=== PATIENT | male | born 1955 | race Caucasian/White ===

== ENCOUNTER 2024-05-10 09:51 | Emergency (ER) | payer MEDICARE, SELFPAY ==
[2024-05-10] VITALS (35 sets, daily range): BP systolic 119–167; BP diastolic 60–117; PULSE 64–82; RESP 14–25; TEMP 36.4–36.8; O2SAT 82–100
--- NOTE | ~2024-05-10 | XR_ITS ---
XR chest 2V 05/10/2024 11:02 Indication: Hypoxia. Procedure: 2 view chest Comparison: 10/06/2018 Findings: Cardiomegaly with mild interstitial edema. No pleural effusion or pneumothorax. No acute os seous abnormality. Impression: 1: Cardiomegaly with mild interstitial edema. Reviewed, dictated and finalized at location B. Impression: 1: Cardiomegaly with mild interstitial edema.
--- NOTE | ~2024-05-10 | CT_ITS ---
EXAMINATION: CTA chest PE protocol DATE: 05/10/2024 12:32 INDICATION: Hypoxia. Elevated d-dimer. TECHNIQUE: Computed tomography (CT) pulmonary angiogram of the chest was performed with 100 mL Omnipa que-350 intravenous contrast. Additional 3D reconstructions utilizing coronal maximum intensity proje ction (MIP) were performed. The dose-length product was 683.07 mGy-cm. COMPARISON: None FINDINGS: Moderate respiratory motion at the apices and lung bases which decreases sensitivity in some of the s maller subsegmental pulmonary arteries in these areas. No pulmonary embolus. Small bilateral posterio r layering pleural effusions with dependent compressive atelectasis in the bilateral lower lobes. Mil d scattered smooth septal line thickening primarily at the apices and lung bases consistent with mild pulmonary edema. There is diffuse bronchial wall thickening with mild scattered mucous plugging. No pneumonia. There is prominent AP narrowing of the trachea and bilateral mainstem bronchi consistent w ith tracheobronchomalacia. Mild cardiomegaly. Scattered atherosclerotic coronary artery calcification s. Thoracic aorta is normal in caliber with no dissection. There is mild mediastinal lymphadenopathy, the largest lymph notes measuring 2.7 x 1.6 cm a subcarinal region and 2.0 x 1.1 cm the AP window. T he left kidney is not visualized which could be either ectopic or developmentally versus surgically a bsent. Mild thoracic spondylosis. IMPRESSION: 1. No pulmonary embolism. Sensitivity decreased in some of the smaller basilar and apical subsegmenta l pulmonary arteries due to respiratory motion. 2. Likely congestive heart failure with cardiomegaly, minimal pulmonary edema and small bilateral ple ural effusions. 3. Diffuse bronchial wall thickening with mild scattered is plugging consistent with bronchitis. 4. Tracheobronchial malacia with increased AP diameter the trachea and mainstem bronchi. 5. Mild mediastinal lymphadenopathy, most likely reactive. 6. Absent versus ectopically located left kidney. Reviewed, dictated and finalized at location A. IMPRESSION: 1. No pulmonary embolism. Sensitivity decreased in some of the smaller basilar and apical subsegmental pulmonary arteries due to respiratory motion. 2. Likely congestive heart failure with cardiomegaly, minimal pulmonary edema a nd small bilateral pleural effusions. 3. Diffuse bronchial wall thickening with mild scattered is plugging consistent with bronchitis. 4. Tracheobronchial malacia with increased AP diameter the trachea and mainstem bronchi. 5. Mild mediastinal lymphadenopathy, most likely reactive. 6. Absent versus ectopically located left kidney.
--- NOTE | 2024-05-10 09:56 | ED.RECABL ---
HPI - Recheck/Abnormal Lab/Rx General Chief Complaint: Recheck/Abnormal Lab/Rx Stated Complaint: high blood sugar Time Seen by Provider: 05/10/24 09:53 Source: patient and EMS Mode of arrival: EMS Limitations: other ( Nonverbal/expressive aphasia) History of Present Illness HPI narrative: 68-year-old male presents with concern for high blood sugar. He lives at a facility. They noted that his blood sugar was high for which he received 10 units of Lantus at approximately 6:00 a.m.. It continue to be elevated and read 466 mg/dL per EMS report for which the facility had given an additional 20 units of Lantus for a total of 30 units total. patient has a history of a stroke which left him nonverbal/with expressive aphasia as well as right-sided contractures. It is reported that patient has been complaining of dysuria. He was also reported to be hypoxic at 89% on room air for EMS. Nasal cannula was placed given this. patient's medication list is reviewed and shows he is on Lantus 10 units subQ (presumably in the am since given at 8am) and Lantus 18 units subQ at HS. also on gabapentin, buspirone, aspirin, Coreg, atorvastatin, amlodipine, Tylenol, naproxen, omeprazole, and erythromycin but no other diabetes agents. Patient was recently admitted at [facility] on [address] per daughter. Related Data Allergies Allergy/AdvReac Type Severity Reaction Status Date / Time No Known Allergies Allergy Verified 05/10/24 10:58 [facility] Past Medical History Medical History Anxiety disorder, unspecified Aphasia following cerebral infarction Aphasia following nontraumatic subarachnoid hemorrhage Cellulitis of right lower limb Cognitive communication deficit Essential (primary) hypertension Gastro-esophageal reflux disease without esophagitis Hemiplegia and hemiparesis following cerebral infarction affecting right dominant side Hyperlipidemia, unspecified Hypoglycemia, unspecified Major depressive disorder, recurrent, mild Other idiopathic peripheral autonomic neuropathy Other specified chronic obstructive pulmonary disease Pain, unspecified Type 2 diabetes mellitus without complications Unspecified symptoms and signs involving cognitive functions following other cerebrovascular disease Vitamin deficiency, unspecified Social History Social History (Updated 05/10/24 @ 11:03 by Ligia Martini MD) Social History: Attempt resuscitation/ CPR per POLST from skilled nursing with full treatment; signed 3/21/19 Living arrangements: skilled nursing Additional living arrangements comments: [facility] since 10/12/2018 Occupation/Education: retired 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 HEAD: Normocephalic, atraumatic. EYES: Non injected, non icteric ENT: Nares clear, no rhinorrhea or epistaxis. NECK: Supple. CHEST: No respiratory distress. You nonlabored. HEART: Regular rate and rhythm. . ABDOMEN: Soft, nondistended. EXTREMITIES: contractures on the right. Concern for cellulitis on the right lower extremity. Bandage at right inguinal crease with underlying mild erythema but otherwise not indurated and no purulence discharge. SKIN: Warm, dry. Bandage over right groin. Stage one sacral decubitus ulcer and along buttocks. NEURO: Alert. contractures on the right. expressive aphasia, patient able to nod and point but unable to provide history beyond that. PSYCH: Normal mood and affect. Course Vital Signs Vital signs: Vital Signs Temperature 97.9 F 05/10/24 09:44 Pulse Rate 66 05/10/24 09:44 Respiratory Rate 14 05/10/24 09:44 Blood Pressure 151/75 H 05/10/24 09:44 Pulse Oximetry 89 L 05/10/24 09:44 Oxygen Delivery Room Air 05/10/24 09:44 Temperature 97.5 F L 05/10/24 11:2
[2024-05-10 10:16] LABS: Alveolar/Arterial O2 Gradient 123.3 mmHg; Base Excess ABG -8.1 mEq/l (+/-2.0); Fractional Inspired Oxygen 32 %; Oxygen Content ABG 15.9 %vol (16.0-22.0); Oxygen Saturation ABG 91.4 % (95.0-100.0); PO2 ABG 65.1 mmHg (80.0-100.0); PO2 FiO2 Ratio Arterial Blood 2.03 %; Total Hemoglobin 12.7 g/dL (12.0-18.0); pH ABG 7.318 (7.350-7.450)
[2024-05-10 10:17] LABS: Device NASAL CANNULA; Modified Allen's Test Pass; Site Drawn LEFT RADIAL
--- NOTE | 2024-05-10 10:26 | PC.NURSE ---
vascular access called to place IV. 2 RN attempted prior to calling
[2024-05-10 10:56] LABS: Basophils Absolute Auto 0.1 K/mm3 (0.0-0.1); Basophils Percent Auto 0.3 % (0.2-1.2); Hematocrit 37.3 % (42.0-52.0); Hemoglobin 12.1 g/dL (14.0-18.0); Immature Granulocyte Absolute 0.42 K/mm3 (0.00-0.031); Immature Granulocyte Percent A 1.9 % (0-0.5); Lymphocytes Absolute Auto 1.14 K/mm3 (0.9-3.2); Lymphocytes Percent Auto 5.1 % (18.3-44.2); Mean Corpuscular HGB Conc 32.4 g/dl (32-36); Mean Corpuscular Hemoglobin 31.5 pg (26-34); Mean Corpuscular Volume 97.1 fl (80-100); Mean Platelet Volume 12.6 fl (7.4-10.4); Monocytes Absolute Auto 1.1 K/mm3 (0.1-0.6); Monocytes Percent Auto 4.7 % (2.6-8.5); Neutrophils Absolute Auto 19.6 K/mm3 (1.3-6.7); Platelet Count Result 219 k/mm3 (150-375); Red Blood Count 3.84 M/mm3 (4.6-6.20); Red Cell Distribution Width 13.6 % (11.5-14.5); White Blood Count 22.3 K/mm3 (4.5-10.0)
[2024-05-10] MEDS: SODIUM CHLORIDE 0.9% IV 1,000 ML 999 ML IV CONT (11:03)
[2024-05-10 11:09] LABS: Alanine Aminotransferase 640 U/L (6-50); Albumin Level 3.5 g/dL (3.5-5.1); Alkaline Phosphatase 139 U/L (38-126); Anion Gap 6 mmol/L (4-12); Bilirubin,Total 0.4 mg/dL (0.2-1.3); Blood Urea Nitrogen 54 mg/dL (9-20); Calcium 8.8 mg/dL (8.4-10.2); Carbon Dioxide 23 mmol/L (22-30); Chloride 104 mmol/L (98-107); Estimated CRCL calculation 26 ml/min; Estimated Glomerular Filt Rate 25; Magnesium 2.3 mg/dL (1.6-2.3); Phosphorus 5.2 mg/dL (2.5-4.5); Sodium 133 mmol/L (137-145)
[2024-05-10 11:10] LABS: Beta-Hydroxybutyrate/Acetoacetate 0.44 mmol/L (0.02-0.27)
[2024-05-10 11:15] LABS: Aspartate Amino Transferase 884 U/L (17-59)
[2024-05-10 11:16] LABS: NT Pro B Type Natriuretic Pept 16300 pg/mL (19.9-100)
[2024-05-10 11:20] LABS: Glucose 638 mg/dL (65-110); Potassium 6.9 mmol/L (3.4-5.0)
[2024-05-10 11:25] LABS: D Dimer 17.75 ug/mL (<0.48)
--- NOTE | 2024-05-10 11:39 | ECG_ITS ---
Test Date: 2024-05-10 12:03:21 Measurements Intervals [place] Rate: 70 P: 29 OK: 174 QRS: 83 QRSD: 90 T: 266 QT: 400 QTc: 432 Interpretive Statements SINUS RHYTHM ST DEVIATION AND MODERATE T-WAVE ABNORMALITY, CONSIDER LATERAL ISCHEMIA [-0.1+ mV T-WAVE IN I/aVL/V5/V6] ST DEVIATION AND MODERATE T-WAVE ABNORMALITY, CONSIDER INFERIOR ISCHEMIA [-0.1+ mV T-WAVE IN II/aVF] No previous ECG available for comparison Electronically Signed On 05-10-2024 14:25:25 CDT by Celina Barahona M.D.
[2024-05-10] MEDS: INSULIN HUMAN REGULAR (*BKC) 100 UNITS/ML 10 UNITS IV PUSH (11:46)
[2024-05-10] MEDS: ALBUTEROL SULFATE NEB 2.5 MG/3 ML INH 10 MG INHALATION (12:06)
[2024-05-10] MEDS: CALCIUM GLUCONATE 1,000 MG/10 ML VIAL 1000 MG IV PUSH (12:08)
[2024-05-10] MEDS: SODIUM BICARBONATE 8.4% 50 MEQ/50 ML SYRINGE IV PUSH (12:08)
[2024-05-10] MEDS: FUROSEMIDE INJ 100 MG/10 ML VIAL 80 MG IV PUSH (12:08)
[2024-05-10 12:20] LABS: Glucose Point of Care > 500 mg/dl (65-105)
[2024-05-10 12:30] LABS: Add Urine Microscopic? YES; Appearance Urine Clear (Clear); Bacteria Urine None Seen /hpf; Bilirubin Urine Negative (Negative); Blood Urine 2+ (Negative); Color Urine Yellow (Yellow); Glucose Urine UA 3+ mg/dL (Negative); Hyaline Casts Urine Present /lpf; Ketones Urine Negative (Negative); Leukocyte Esterase Ur Negative LEU/UL (Negative); Need Manual Microscopic Reviewed; Nitrate Urine Negative (Negative); Protein Urine 3+ mg/dL (Negative); RBC Urine 0-2 /hpf (0-2); Specific Grav Ur 1.026 (1.001-1.035); Squamous Epithelial Cell Urine None Seen /hpf (Few); Urobilinogen Urine 0.2 mg/dL (<2.0); WBC Urine 0-5 /hpf (0-3); pH Urine 5.5 (5.0-9.0)
[2024-05-10 12:40] LABS: Glucose Point of Care 482 mg/dl (65-105)
[2024-05-10] MEDS: SODIUM POLYSTYRENE SULFONONATE 15 GM/60 ML BTL 30 GM PO (13:21)
[2024-05-10 13:39] LABS: Anion Gap 7 mmol/L (4-12); Blood Urea Nitrogen 53 mg/dL (9-20); Carbon Dioxide 23 mmol/L (22-30); Chloride 107 mmol/L (98-107); Estimated CRCL calculation 27 ml/min; Estimated Glomerular Filt Rate 26; Glucose 422 mg/dL (65-110); Potassium 5.2 mmol/L (3.4-5.0); Sodium 137 mmol/L (137-145)
--- NOTE | 2024-05-10 14:14 | PC.NURSE ---
Called Vascular access to attempt blood culture collection
--- NOTE | 2024-05-10 14:27 | ECG_ITS ---
Test Date: 2024-05-10 15:11:01 Measurements Intervals [place] Rate: 69 P: 25 IL: 197 QRS: 74 QRSD: 92 T: 0 QT: 402 QTc: 433 Interpretive Statements SINUS RHYTHM ST DEVIATION AND MODERATE T-WAVE ABNORMALITY, CONSIDER LATERAL ISCHEMIA [-0.1+ mV T-WAVE IN I/aVL/V5/V6] ST DEVIATION AND MODERATE T-WAVE ABNORMALITY, CONSIDER INFERIOR ISCHEMIA [-0.1+ mV T-WAVE IN II/aVF] Compared to ECG 05/10/2024 12:03:21 No significant changes Electronically Signed On 05-11-2024 13:31:01 CDT by Celina Barahona M.D.
[2024-05-10] MEDS: methylPREDNISolone SOD SUCC 125 MG VIAL IV PUSH (15:02)
[2024-05-10] MEDS: ASPIRIN 81 MG CHEWABLE TABLET 324 MG PO (15:02)
[2024-05-10] MEDS: AZITHROMYCIN 500 MG/NS 250 ML 500 MG/250 ML BAG 250 MG IVPB (15:02)
--- NOTE | 2024-05-10 16:12 | PC.NURSE ---
Medical record consent form fxed to marie BORJA by social secretary Pauline
[2024-05-10 16:49] LABS: Lactic Acid Reflex 3.2 mmol/L (0.7-2.0)
--- NOTE | 2024-05-10 17:30 | PC.NURSE ---
Called lab for add on of acetaminophen, PT, PTT, INR
[2024-05-10 17:40] LABS: Acetaminophen < 10 ug/mL (10-30)
--- NOTE | 2024-05-10 18:40 | PC.NURSE ---
@ [phone] valle
--- NOTE | 2024-05-10 19:13 | PC.NURSE ---
Attempted to call report 4 times to Leo. Every call I was transferred and nurse did not excelsior picker. No other staff will take report at this time.
[2024-05-10 19:25] LABS: Reflex Lactic Acid Yes or No Add Lactic
[2024-05-10 19:45] LABS: Glucose Point of Care 380 mg/dl (65-105)
== END 2024-05-10 20:45 | disposition short-term general hospital (02) ==
PROVIDERS: Emergency Provider Student in an Organized Health Care Education/Training Program
DX: E11.65 Type 2 diabetes mellitus with hyperglycemia (principal); E87.5 Hyperkalemia; I21.4 Non-ST elevation (NSTEMI) myocardial infarction; I50.9 Heart failure, unspecified; I51.7 Cardiomegaly; J44.1 Chronic obstructive pulmonary disease with (acute) exacerbation; J81.1 Chronic pulmonary edema; J90 Pleural effusion, not elsewhere classified; L03.115 Cellulitis of right lower limb; R74.01 Elevation of levels of liver transaminase levels; I69.320 Aphasia following cerebral infarction; I69.351 Hemiplegia and hemiparesis following cerebral infarction affecting right dominant side; I69.319 Unspecified symptoms and signs involving cognitive functions following cerebral infarction; I11.0 Hypertensive heart disease with heart failure; E11.43 Type 2 diabetes mellitus with diabetic autonomic (poly)neuropathy; K21.9 Gastro-esophageal reflux disease without esophagitis; E78.5 Hyperlipidemia, unspecified; Z79.4 Long term (current) use of insulin; R94.31 Abnormal electrocardiogram [ECG] [EKG]
CPT/HCPCS: 36415; 36600; 71046; 71275; 80048; 80053; 80143; 81001; 82010; 82805; 82948; 83605; 83735; 83880; 84100; 84484; 85018; 85025; 85380; 87040; 93005; 94640; 96361; 96365; 96375; 99285; A9270; J0456; J0612; J1815; J1940; J2919; J7030; Q9967

== ENCOUNTER 2024-06-28 13:19 | Emergency (ER) | payer MEDICARE, MEDICAID, SELFPAY ==
[2024-06-28] VITALS (17 sets, daily range): BP systolic 140–159; BP diastolic 47–71; PULSE 60–72; RESP 11–20; TEMP 36.4–36.8; O2SAT 94–99
--- NOTE | ~2024-06-28 | XR_ITS ---
XR chest 1V portable Ordering provider: Regan Cedeno MD History: 68 years Male with . infection . Comparison: None. FINDINGS: MEDIASTINUM: The cardiac silhouette is slightly enlarged. LUNGS: No infiltrates, effusions or pneumothorax. Bilateral interstitial changes OTHER: No free air under the diaphragm. IMPRESSION: No acute cardiopulmonary pathology. Reviewed, dictated and finalized at location A. EACH WORKER
--- NOTE | ~2024-06-28 | CT_ITS ---
EXAMINATION: CT femur RT w con DATE: 06/28/2024 15:54 INDICATION: Right thigh pain. TECHNIQUE: Computed tomography (CT) of the right femur was performed with 100 mL Omnipaque 350 intrav enous contrast. Automated exposure control and iterative reconstruction technique were employed. The dose-length product was 730.51 mGy-cm. COMPARISON: None FINDINGS: There is amputation at the femoral diaphysis. No erosions of bone at the stump. The wound i s open at the stump with exposure of bone. Skin sherif are noted. There is moderate right hip osteoa rthritis. IMPRESSION: 1. Amputation of the right femoral diaphysis with open wound with exposure of bone. Reviewed, dictated and finalized at location A. ROBE SUPERVISOR IMPRESSION: 1. Amputation of the right femoral diaphysis with open wound with exposure of b one.
--- NOTE | 2024-06-28 14:06 | ECG_ITS ---
Test Date: 2024-06-28 15:09:11 Measurements Intervals [place] Rate: 62 P: -17 RI: 184 QRS: 51 QRSD: 88 T: 143 QT: 415 QTc: 424 Interpretive Statements SINUS RHYTHM ST DEVIATION AND MODERATE T-WAVE ABNORMALITY, CONSIDER ANTEROLATERAL ISCHEMIA [-0.1+ mV T-WAVE IN V3-V6] Electronically Signed On 06-28-2024 15:20:09 [employer] PRESIDENT [employer]IENT SERVICES by Stevo Dumnot M.D.
--- NOTE | 2024-06-28 14:11 | ED_ITS ---
HPI - General Adult General Chief complaint: Wound/Laceration Stated complaint: wound Time Seen by Provider: 06/28/24 13:22 History of Present Illness HPI narrative: 68-year-old male present to the emergency department for evaluation for worsening mental status. 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 The patient had the surgery at [facility]. Family states that the surgeons were initially reluctant to perform the surgery as they felt that he was too unstable for the surgery and that his leg was not heal properly, patient does have a wound VAC the stump and daughter states that the leg is not healing properly. Family felt the patient was more altered and wanted him evaluated. Family did not want the patient going back to [facility]. Family was unsatisfied with the care obtained there. Family prefers the patient to be transferred to [facility]. Related Data Allergies Allergy/AdvReac Type Severity Reaction Status Date / Time No Known Allergies Allergy Verified 05/10/24 10:58 Review of Systems Review of Systems: All systems reviewed & are unremarkable except as noted in HPI and below PMFSH Past Medical History Medical History Anxiety disorder, unspecified Aphasia following cerebral infarction Aphasia following nontraumatic subarachnoid hemorrhage Cellulitis of right lower limb Cognitive communication deficit Essential (primary) hypertension Gastro-esophageal reflux disease without esophagitis Hemiplegia and hemiparesis following cerebral infarction affecting right dominant side Hyperlipidemia, unspecified Hypoglycemia, unspecified Major depressive disorder, recurrent, mild Other idiopathic peripheral autonomic neuropathy Other specified chronic obstructive pulmonary disease Pain, unspecified Type 2 diabetes mellitus without complications Unspecified symptoms and signs involving cognitive functions following other cerebrovascular disease Vitamin deficiency, unspecified Social History Social History (Updated 05/10/24 @ 11:03 by Ligia Martini MD) Social History: Attempt resuscitation/ CPR per POLST from halfway with full treatment; signed 10/12/18 Living arrangements: halfway Additional living arrangements comments: [facility] since 10/12/2018 Occupation/Education: retired 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 EYES: PERRLA/EOMI, conjunctivae clear. NOSE: Normal no drainage EARS:TMS clear with good light reflex. THROAT: Pharynx clear, no exudate. NECK: Supple. No adenopathy, no masses. RESPIRATORY: Airway patent, respirations nonlabored. Clear to auscultation bilaterally, no rales, rhonchi, wheezing. CARDIOVASCULAR: Regular rate and rhythm without murmurs rubs or gallops. ABDOMINAL: Soft, nontender, nondistended, normal bowel sounds MUSCULOSKELETAL: Right [id number] amputation NEURO: Somnolent SKIN: Warm, dry. Normal Color Course Course Emergency Course: Patient was admitted to the emergency and was transported as ED to ED. Vital Signs Vital signs: Vital Signs Temperature 97.6 F 06/28/24 13:19 Pulse Rate 62 06/28/24 13:19 Respiratory Rate 16 06/28/24 13:19 Blood Pressure 143/53 H 06/28/24 13:19 Pulse Oximetry 98 06/28/24 13:19 Temperature 98.2 F 06/28/24 18:31 Pulse Rate 62 06/28/24 18:31 Respiratory Rate 17 06/28/24 18:31 Blood Pressure 150/71 H 06/28/24 18:31 Pulse Oximetry 98 06/28/24 18:31 Medical Decision Making MDM Narrative Medical decision making narrative: 68-year-old male history of atherosclerosis, high cholesterol, CVA, GERD, chronic kidney disease presents emergency department for evaluation of a poorly healing amputation. Surgery occurred at [facility] in families opposed to going back to [facility] at this time. The prefer to go to [place]. Family is even opposed to admission here. Did discuss the case with the hospitalist and general surgeon at [place] and patient was not accepted for transfer. They feel the patient should be transferred back to the facility where the surgery occurred. I discussed the case with our surgeon on-call he also felt the patient needed to be transferred back to [facility]. I had another conversation with family and ultimately they did agree that the patient can be transferred back to [facility] and they are comfortable if the patient did need further surgical treatment. Case was presented to Dr. Moss at [facility] and since the patient is willing to pursue further surgical intervention they are comfortable with plan for transfer. Patient was accepted as an ED to ED transfer. Patient family updated on the caleb n for transfer. All questions concerns were addressed. Differential Diagnosis Differential Diagnosis: Wound infection, UTI, CVA, pneumonia, COVID, RSV, influenza Vital Signs Vital Signs: Vital Signs Temperature 97.6 F 06/28/24 13:19 Pulse Rate 62 06/28/24 13:19 Respiratory Rate 16 06/28/24 13:19 Blood Pressure 143/53 H 06/28/24 13:19 Pulse Oximetry 98 06/28/24 13:19 Temperature 98.2 F 06/28/24 18:31 Pulse Rate 62 06/28/24 18:31 Respiratory Rate 17 06/28/24 18:31 Blood Pressure 150/71 H 06/28/24 18:31 Pulse Oximetry 98 06/28/24 18:31 Lab Data Lab results reviewed: Yes I reviewed the patient's lab results. 06/28/24 14:36 06/28/24 14:37 Labs: Lab Results 06/28/24 06/28/24 06/28/24 Range/Units 14:36 14:37 17:12 WBC 16.7 H (4.5-10.0) K/mm3 RBC 3.70 L (4.6-6.20) M/mm3 Hgb 10.9 L (14.0-18.0) g/dL Hct 34.7 L (42.0-52.0) % MCV 93.8 (80-100) fl MCH 29.5 (26-34) pg MCHC 31.4 L (32-36) g/dl RDW 14.5 (11.5-14.5) % Plt Count 393 H D (150-375) k/mm3 MPV 12.0 H (7.4-10.4) fl Immature Gran % (Auto) 0.4 (0-0.5) % Neut % (Auto) 76.4 H (45.5-73.1) % Lymph % (Auto) 14.1 L (18.3-44.2) % [place] % (Auto) 7.9 (2.6-8.5) % Eos % (Auto) 0.7 (0-4.4) % Baso % (Auto) 0.5 (0.2-1.2) % Lymph # (Auto) 2.35 (0.9-3.2) K/mm3 [place] # (Auto) 1.3 H (0.1-0.6) K/mm3 Eos # (Auto) 0.1 (0-0.3) K/mm3 Baso # (Auto) 0.1 (0.0-0.1) K/mm3 Abs Immat Gran (auto) 0.07 H (0.00-0.031) K/mm3 Absolute Neuts (auto) 12.8 H (1.3-6.7) K/mm3 Absolute Nucleated RBC 0.000 (0.0-0.012) K/mm3 Nucleated RBC % 0.0 (0.0-0.2) % ESR 39 H (0-20) mm/hr PT 15.0 H (11.1-14.7) Seconds INR 1.1 APTT 29.5 (22.3-36.8) Seconds Sodium 135 L (137-145) mmol/L Potassium 5.1 H (3.4-5.0) mmol/L Chloride 95 L (98-107) mmol/L Carbon Dioxide 35 H (22-30) mmol/L Anion Gap 5 (4-12) mmol/L BUN 103 H D (9-20) mg/dL Creatinine 1.50 H (0.7-1.3) mg/dL Estim Creat Clear Calc 45 ml/min Estimated GFR 47 L (59 - ) Glucose 151 H (65-110) mg/dL Lactic Acid 0.9 (0.7-2.0) mmol/L Calcium 10.7 H (8.4-10.2) mg/dL Total Bilirubin 0.6 (0.2-1.3) mg/dL AST 31 (17-59) U/L ALT 22 (6-50) U/L Alkaline Phosphatase 120 (38-126) U/L C-Reactive Protein 17.3 H (<1.0) mg/dL Total Protein 8.0 (6.3-8.2) g/dL Albumin 3.7 (3.5-5.1) g/dL Procalcitonin 0.3 ng/mL Urine Color (Yellow) Urine Appearance (Clear) Urine pH (5.0-9.0) Ur Specific [place] (1.001-1.035) Urine Protein (Negative) mg/dL Urine Glucose (UA) (Negative) mg/dL Urine Ketones (Negative) mg/dL Ur Blood (Man) (Negative) Urine Nitrate (Negative) Urine Bilirubin (Negative) Urine Urobilinogen (<2.0) mg/dL Add Ur Microanalysis Leukocyte Esterase Rfl (Negative) GALE/UL Urine RBC (0-2) /hpf Urine WBC (0-3) /hpf Ur Squamous Epith Cells (Few) /hpf Urine Bacteria /hpf Urine Casts Urine Mucus /lpf Influenza A (RT-PCR) (Negative) Influenza B (RT-PCR) (Negative) RSV (RT-PCR) (Negative) SARS-CoV-2 RNA (RT-PCR) (Negative) 06/28/24 Range/Units 17:45 WBC (4.5-10.0) K/mm3 RBC (4.6-6.20) M/mm3 Hgb (14.0-18.0) g/dL Hct (42.0-52.0) % MCV (80-100) fl MCH (26-34) pg MCHC (32-36) g/dl RDW (11.5-14.5) % Plt Count (150-375) k/mm3 MPV (7.4-10.4) fl Immature Gran % (Auto) (0-0.5) % Neut % (Auto) (45.5-73.1) % Lymph % (Auto) (18.3-44.2) % [place] % (Auto) (2.6-8.5) % Eos % (Auto) (0-4.4) % Baso % (Auto) (0.2-1.2) % Lymph # (Auto) (0.9-3.2) K/mm3 [place] # (Auto) (0.1-0.6) K/mm3 Eos # (Auto) (0-0.3) K/mm3 Baso # (Auto) (0.0-0.1) K/mm3 Abs Immat Gran (auto) (0.00-0.031) K/mm3 Absolute Neuts (auto) (1.3-6.7) K/mm3 Absolute Nucleated RBC (0.0-0.012) K/mm3 Nucleated RBC % (0.0-0.2) % ESR (0-20) mm/hr PT (11.1-14.7) Seconds INR APTT (22.3-36.8) Seconds Sodium (137-145) mmol/L Potassium (3.4-5.0) mmol/L Chloride (98-107) mmol/L Carbon Dioxide (22-30) mmol/L Anion Gap (4-12) mmol/L BUN (9-20) mg/dL Creatinine (0.7-1.3) mg/dL Estim Creat Clear Calc ml/min Estimated GFR (59 - ) Glucose (65-110) mg/dL Lactic Acid (0.7-2.0) mmol/L Calcium (8.4-10.2) mg/dL Total Bilirubin (0.2-1.3) mg/dL AST (17-59) U/L ALT (6-50) U/L Alkaline Phosphatase (38-126) U/L C-Reactive Protein (<1.0) mg/dL Total Protein (6.3-8.2) g/dL Albumin (3.5-5.1) g/dL Procalcitonin ng/mL Urine Color Yellow (Yellow) Urine Appearance Clear (Clear) Urine pH 6.0 (5.0-9.0) Ur Specific [place] 1.023 (1.001-1.035) Urine Protein 3+ H (Negative) mg/dL Urine Glucose (UA) 1+ H (Negative) mg/dL Urine Ketones Negative (Negative) mg/dL Ur Blood (Man) 1+ H (Negative) Urine Nitrate Negative (Negative) Urine Bilirubin Negative (Negative) Urine Urobilinogen 0.2 (<2.0) mg/dL Add Ur Microanalysis Reviewed Leukocyte Esterase Rfl 2+ H (Negative) GALE/UL Urine RBC 6-10 H (0-2) /hpf Urine WBC 51-100 H (0-3) /hpf Ur Squamous Epith Cells Occasional (Few) /hpf Urine Bacteria None seen /hpf Urine Casts 6-10 Urine Mucus Present /lpf Influenza A (RT-PCR) Negative (Negative) Influenza B (RT-PCR) Negative (Negative) RSV (RT-PCR) Negative (Negative) SARS-CoV-2 RNA (RT-PCR) Negative (Negative) Imaging Data Radiologist's impression: Impressions Femur CT 06/28/24 15:55 IMPRESSION: 1. Amputation of the right femoral diaphysis with open wound with exposure of bone. Chest X-Ray 06/28/24 17:42 IMPRESSION: No acute cardiopulmonary pathology. Discharge Plan Discharge Clinical Impression: Visit for wound check, AMS (altered mental status), Acute UTI Patient Disposition: Acute Care Hospital Condition: Serious Follow-up/Referrals: UNKNOWN,DOCTOR [Primary Care Provider] -
[2024-06-28 14:43] LABS: Basophils Absolute Auto 0.1 K/mm3 (0.0-0.1); Basophils Percent Auto 0.5 % (0.2-1.2); Eosinophils Absolute Auto 0.1 K/mm3 (0-0.3); Eosinophils Percent Auto 0.7 % (0-4.4); Hematocrit 34.7 % (42.0-52.0); Hemoglobin 10.9 g/dL (14.0-18.0); Immature Granulocyte Absolute 0.07 K/mm3 (0.00-0.031); Immature Granulocyte Percent A 0.4 % (0-0.5); Lymphocytes Absolute Auto 2.35 K/mm3 (0.9-3.2); Lymphocytes Percent Auto 14.1 % (18.3-44.2); Mean Corpuscular HGB Conc 31.4 g/dl (32-36); Mean Corpuscular Hemoglobin 29.5 pg (26-34); Mean Corpuscular Volume 93.8 fl (80-100); Monocytes Absolute Auto 1.3 K/mm3 (0.1-0.6); Monocytes Percent Auto 7.9 % (2.6-8.5); Neutrophils Absolute Auto 12.8 K/mm3 (1.3-6.7); Neutrophils Percent Auto 76.4 % (45.5-73.1); Platelet Count Result 393 k/mm3 (150-375); Red Cell Distribution Width 14.5 % (11.5-14.5); White Blood Count 16.7 K/mm3 (4.5-10.0)
[2024-06-28 15:16] LABS: Erythrocyte Sedimentation Rate 39 mm/hr (0-20)
[2024-06-28 15:21] LABS: Alanine Aminotransferase 22 U/L (6-50); Albumin Level 3.7 g/dL (3.5-5.1); Alkaline Phosphatase 120 U/L (38-126); Anion Gap 5 mmol/L (4-12); Aspartate Amino Transferase 31 U/L (17-59); Bilirubin,Total 0.6 mg/dL (0.2-1.3); Blood Urea Nitrogen 103 mg/dL (9-20); CRP 17.3 mg/dL (<1.0); Calcium 10.7 mg/dL (8.4-10.2); Carbon Dioxide 35 mmol/L (22-30); Chloride 95 mmol/L (98-107); Estimated CRCL calculation 45 ml/min; Estimated Glomerular Filt Rate 47; Glucose 151 mg/dL (65-110); Potassium 5.1 mmol/L (3.4-5.0); Sodium 135 mmol/L (137-145)
[2024-06-28] MEDS: MORPHINE SULFATE (*CRX) 2 MG/ML INJ IV PUSH (15:31)
[2024-06-28] MEDS: CEFEPIME 2 GM/NS 50 ML 2 GM/50 ML BAG IVPB (15:33)
[2024-06-28 15:52] LABS: Procalcitonin 0.3 ng/mL
[2024-06-28] MEDS: metroNIDAZOLE 500 MG/ISO 100ML 500 MG/100 ML BAG 100 MG IVPB (16:35)
--- NOTE | 2024-06-28 16:37 | PC.NURSE ---
Contacted phleb for assistance with difficult draw.
[2024-06-28] MEDS: SODIUM CHLORIDE 0.9% IV 1,000 ML 999 ML IV CONT (17:31)
[2024-06-28] MEDS: VANCOMYCIN 1,750 MG/NS 500 ML BAG 250 MG IVPB (17:31)
[2024-06-28 17:33] LABS: INR 1.1; Partial Thromboplastin Time 29.5 Seconds (22.3-36.8)
[2024-06-28 17:34] LABS: Lactic Acid Reflex 0.9 mmol/L (0.7-2.0)
[2024-06-28 18:05] LABS: Add Urine Microscopic? YES; Appearance Urine Clear (Clear); Bacteria Urine None Seen /hpf; Bilirubin Urine Negative (Negative); Blood Urine 1+ (Negative); Color Urine Yellow (Yellow); Glucose Urine UA 1+ mg/dL (Negative); Ketones Urine Negative (Negative); Leukocyte Esterase Ur 2+ LEU/UL (Negative); Mucus Urine Present /lpf; Need Manual Microscopic Reviewed; Nitrate Urine Negative (Negative); Protein Urine 3+ mg/dL (Negative); Specific Grav Ur 1.023 (1.001-1.035); Squamous Epithelial Cell Urine Occasional /hpf (Few); Urobilinogen Urine 0.2 mg/dL (<2.0); WBC Urine 51-100 /hpf (0-3)
[2024-06-28 18:29] LABS: Influenza A QL RT-PCR Negative (Negative); Influenza B QL RT-PCR Negative (Negative); RSV RNA, RT-PCR Negative (Negative); SARS-CoV-2 RNA PCR Negative (Negative)
== END 2024-06-28 20:25 | disposition short-term general hospital (02) ==
PROVIDERS: Emergency Provider Emergency Medicine
DX: T87.89 Other complications of amputation stump (principal); N39.0 Urinary tract infection, site not specified; R41.82 Altered mental status, unspecified; Z89.611 Acquired absence of right leg above knee; Z20.822 Contact with and (suspected) exposure to COVID-19; I69.320 Aphasia following cerebral infarction; I69.351 Hemiplegia and hemiparesis following cerebral infarction affecting right dominant side; I69.319 Unspecified symptoms and signs involving cognitive functions following cerebral infarction; E11.22 Type 2 diabetes mellitus with diabetic chronic kidney disease; I12.9 Hypertensive chronic kidney disease with stage 1 through stage 4 chronic kidney disease, or unspecified chronic kidney disease; N18.9 Chronic kidney disease, unspecified; E78.00 Pure hypercholesterolemia, unspecified; E11.43 Type 2 diabetes mellitus with diabetic autonomic (poly)neuropathy; J44.89 Other specified chronic obstructive pulmonary disease; K21.9 Gastro-esophageal reflux disease without esophagitis; Y83.5 Amputation of limb(s) as the cause of abnormal reaction of the patient, or of later complication, without mention of misadventure at the time of the procedure; R94.31 Abnormal electrocardiogram [ECG] [EKG]
CPT/HCPCS: 36415; 71045; 73701; 80053; 81001; 83605; 84145; 85025; 85610; 85652; 85730; 86140; 87040; 87086; 87637; 93005; 96365; 96366; 96367; 96375; 99285; J0692; J1836; J2270; J3370; J7030